=== PATIENT | female | born 1985 | race Caucasian/White ===

== ENCOUNTER 2016-12-11 09:15 | Emergency (ER) | payer BC ==
[~2016-12-11] VITALS: Ht 165.1 cm; Wt 115.2 kg
[2016-12-11 09:27] VITALS: TEMP 36.7; Ht 165.1 cm; Wt 115.2 kg
[2016-12-11] MEDS ORDERED: ONDANSETRON INJ 2 MG/ML 2 ML VIAL IV STA ×2 (09:53→11:43)
[2016-12-11] MEDS ORDERED: MULTI-VITAMIN INFUSION INJ 10 ML, THIAMINE HCL INJ 100 MG, FoLIC ACID INJ 1 MG in SODIU... IV ONE (10:00)
--- NOTE | 2016-12-11 10:02 | EMERGENCY ROOM VISIT NOTE ---
History First contact with patient: 09:48 Chief Complaint: VOMITING Stated Complaint: VOMITING,DIARRHEA Nursing Triage Summary: pt reports NVD since 2200 last night, pt reports 28 weeks preg denies vag bleeding or abdominal cramping History of Present Illness The patient is a 31 year old at 28 weeks gestation female who presents to the Emergency Room with complaints of vomiting and diarrhea since 10pm yesterday. She reports her other two children had stomach bugs, and she caught it last night. She has constantly been nauseated, and vomited too many times to count. She reports over the last few hours she has noticed her vomit had specks of blood in it. She had associated diarrhea. She feels tired but denies any chest pain. She is having mild Stuart-Hsu contractions. She follows with [facility] in [place]. She denies any vaginal bleeding, discharge, or other concerns. Review of Systems See HPI for pertinent positives & negatives. A total of 10 systems reviewed and were otherwise negative. Past Medical/Surgical History No PMHx or PSHx Family History No pertinent FHx Social History Smoking Status: Never Smoker Current/Historical Medications Scheduled Multivit/Min/Iron/Fol Ac/Pren ( Vitamin), 1 TAB PO DAILY Scheduled PRN Ondansetron Odt (Zofran Odt), 8 MG SL Q6H PRN for Nausea Allergies Coded Allergies: No Known Allergies (Unverified , 12/11/16) Physical Exam Vital Signs Date Time Temp Pulse Resp B/P Pulse Ox O2 Delivery O2 Flow Rate FiO2 12/11/16 13:11 102 18 102/53 100 12/11/16 12:29 102 18 116/84 99 Room Air 12/11/16 11:01 102 18 102/59 99 Room Air 12/11/16 09:27 36.7 119 20 135/80 98 Room Air Physical Exam GENERAL: Awake, alert, well-appearing, in no acute distress HENT: Normocephalic, atraumatic. Mouth dry, tongue stained yellow. EYES: Normal conjunctiva. Sclera non-icteric. NECK: Supple. No nuchal rigidity. FROM. No JVD. RESPIRATORY: Clear to auscultation. CARDIAC: Regular rate, normal rhythm. Extremities warm and well perfused. Pulses equal. ABDOMEN: Soft, distended, gravid. No tenderness to palpation. No rebound or guarding. No masses. MUSCULOSKELETAL: Chest examination reveals no tenderness. The back is symmetrical on inspection without obvious abnormality. There is no CVA tenderness to palpation. No joint edema. LOWER EXTREMITIES: Calves are equal size bilaterally and non-tender. No edema. No discoloration. NEURO: Normal sensorium. No sensory or motor deficits noted. SKIN: No rash or jaundice noted. Medical Decision & Procedures Laboratory Results 12/11/16 09:45 Red Blood Count 4.43, Mean Corpuscular Volume 82.4, Mean Corpuscular Hemoglobin 30.0, Mean Corpuscular Hemoglobin Concent 36.4, Mean Platelet Volume 9.6, Neutrophils (%) (Auto) 93.2, Lymphocytes (%) (Auto) 3.8, Monocytes (%) (Auto) 2.3, Eosinophils (%) (Auto) 0.1, Basophils (%) (Auto) 0.1, Neutrophils # (Auto) 14.08, Lymphocytes # (Auto) 0.58, Monocytes # (Auto) 0.35, Eosinophils # (Auto) 0.02, Basophils # (Auto) 0.01 12/11/16 09:45 Test 12/11/16 00:00 12/11/16 09:45 Urine Color YELLOW Urine Appearance CLEAR (CLEAR) Urine pH 6.0 (4.5-7.5) Urine Specific [place] >= 1.030 (1.000-1.030) Urine Protein TRACE (NEG) Urine Glucose (UA) NEG (NEG) Urine Ketones 3+ (NEG) Urine Occult Blood NEG (NEG) Urine Nitrite NEG (NEG) Urine Bilirubin NEG (NEG) Urine Urobilinogen NEG (NEG) Urine Leukocyte Esterase NEG (NEG) White Blood Count 15.12 K/uL (4.8-10.8) Red Blood Count 4.43 M/uL (4.2-5.4) Hemoglobin 13.3 g/dL (12.0-16.0) Hematocrit 36.5 % (37-47) Mean Corpuscular Volume 82.4 fL (80-100) Mean Corpuscular Hemoglobin 30.0 pg (25-34) Mean Corpuscular Hemoglobin Concent 36.4 g/dl (32-36) Platelet Count 297 K/uL (130-400) Mean Platelet Volume 9.6 fL (7.4-10.4) Neutrophils (%) (Auto) 93.2 % Lymphocytes (%) (Auto) 3.8 % Monocytes (%) (Auto) 2.3 % Eosinophils (%) (Auto) 0.1 % Basophils (%) (Auto) 0.1 % Neutrophils # (Auto) 14.08 K/uL (1.4-6.5) Lymphocytes # (Auto) 0.58 K/uL (1.2-3.4) Monocytes # (Auto) 0.35 K/uL (0.11-0.59) Eosinophils # (Auto) 0.02 K/uL (0-0.5) Basophils # (Auto) 0.01 K/uL (0-0.2) RDW Standard Deviation 42.1 fL (36.4-46.3) RDW Coefficient of Variation 14.1 % (11.5-14.5) Immature Granulocyte % (Auto) 0.5 % Immature Granulocyte # (Auto) 0.08 K/uL (0.00-0.02) Anion Gap 12.0 mmol/L (3-11) Est Creatinine Clear Calc Drug Dose 177.9 ml/min Estimated GFR () 141.2 Estimated GFR (Non- 121.8 BUN/Creatinine Ratio 11.4 (10-20) Calcium Level 8.7 mg/dl (8.5-10.1) Total Bilirubin 0.7 mg/dl (0.2-1) Direct Bilirubin 0.2 mg/dl (0-0.2) Aspartate Amino Transf (AST/SGOT) 17 U/L (15-37) Alanine Aminotransferase (ALT/SGPT) 15 U/L (12-78) Alkaline Phosphatase 40 U/L (45-117) Total Protein 6.8 gm/dl (6.4-8.2) Albumin 2.8 gm/dl (3.4-5.0) Lipase 119 U/L (73-393) Medications Administered Medications (Trade) Dose Ordered Sig/Lakshmi Route Start Time Stop Time Status Last Admin Dose Admin Multivitamins/ Thiamine HCl/ Folic Acid/Sodium Chloride (Mvi Infusion Inj/Vitamin B-1 Inj/Folvite Inj/ Nss 1000ml) 1,011.2 ml @ 999 mls/ hr Q1H1M ONCE IV 12/11/16 10:00 12/11/16 11:00 DC 12/11/16 10:09 999 MLS/HR Ondansetron HCl (Zofran Inj) 4 mg NOW STAT IV 12/11/16 09:53 12/11/16 09:54 DC 12/11/16 10:02 4 MG Ondansetron HCl 4 mg 4 mg NOW STAT IV 12/11/16 11:43 12/11/16 11:44 DC 12/11/16 11:54 4 MG Sodium Chloride (Nss 1000ml) 1,000 ml @ 999 mls/hr Q1H1M IV 12/11/16 12:30 12/11/16 13:30 DC 12/11/16 12:30 999 MLS/HR ED Course 9:50: I reviewed the patient. I started her on a 1L Banana bag and provided 4mg IV Zofran. 10:56am: On further review, the patient reports feeling somewhat better. Her nausea has improved. 11:30: On further review by Dr Zaldivar, we ordered labs and a further bolus of fluids. Her labs were negative and she felt better after the next fluid bolus. Medical Decision This is a 31 yo female who likely has a viral gastroenteritis causing nausea/vomiting, and diarrhea. Other differentials include cholecystitis, peptic ulcer disease, reflux, electrolyte disturbance, or dehydration. She received Zofran and 2L of fluid boluses. Her LFTS and lipase were normal so this ruled out any gallbladder pathology. She felt better and her nausea had improved. She ended up passing urine and tolerated PO liquids and crackers. She was deemed safe to discharge home and a prescription of Zofran was prescribed for her as well. She was discharged home in good condition. Impression Primary Impression: Gastroenteritis Departure Information Prescriptions Ondansetron Odt (ZOFRAN ODT) 8 Mg Soltab 8 MG SL Q6H Y for Nausea, #10 TAB Prov: Dariana Martínez MD 12/11/16 Referrals No Doctor, Assigned (PCP) Patient Instructions My [facility] Resident Tracking Resident Involvement: Resident Care Provided Care Provided: Adult ED
[2016-12-11] MEDS ORDERED: PRENTAB26 PO (10:11)
[2016-12-11] MEDS ORDERED: ONDA8TAB62 SL (11:38)
[2016-12-11 12:06] LABS: BASO % 0.1 %; BASO ABS # 0.01 K/uL (0-0.2); COMPLETE YES; EOS % 0.1 %; HEMATOCRIT 36.5 % (37-47); IG% 0.5 %; LYMPH % 3.8 %; LYMPH ABS # 0.58 K/uL (1.2-3.4); MEAN CELL VOLUME 82.4 fL (80-100); MEAN CORPUSCULAR HGB CONC 36.4 g/dl (32-36); MEAN PLATELET VOLUME 9.6 fL (7.4-10.4); MONO % 2.3 %; NEUT % 93.2 %; PLATELET COUNT 297 K/uL (130-400); RED BLOOD COUNT 4.43 M/uL (4.2-5.4); WHITE BLOOD COUNT 15.12 K/uL (4.8-10.8)
[2016-12-11 12:22] LABS: URINE APPEARANCE CLEAR (CLEAR); URINE BILIRUBIN NEG (NEG); URINE COLOR YELLOW; URINE NITRITE NEG (NEG); URINE SPECIFIC GRAVITY >= 1.030 (1.000-1.030); UROBILINOGEN NEG (NEG)
[2016-12-11 12:23] LABS: BUN/CREATININE RATIO 11.4 (10-20); CALCIUM 8.7 mg/dl (8.5-10.1); CREATININE 0.57 mg/dl (0.60-1.20); POTASSIUM 3.9 mmol/L (3.5-5.1)
[2016-12-11 12:25] LABS: MANUAL MICROSCOPIC REQUIRED? NO; REVIEW REQ? NO
[2016-12-11] MEDS ORDERED: SODIUM CHLORIDE 0.9% 1000ML 1,000 ML IV SCH (12:30)
[2016-12-11 13:11] VITALS: BP 102/53; PULSE 102; O2SAT 100
--- NOTE | 2016-12-11 15:35 | EMERGENCY ROOM VISIT NOTE ---
ED Visit Note First contact with patient: 09:48 Patient evaluated with resident. 31-year-old 28 weeks uncomplicated comes emergency room for nausea and loose stools this morning associated with several episodes of nonbilious nonbloody vomiting. Minimal epigastric tenderness on exam and patient appears mildly ill. Screening labs including LFTs and lipase within normal limits. Ketones noted in urine. Antiemetics provided and normal saline 2 L administered. Patient appeared comfortable reexamination tolerating by mouth and would like to go home. She understands take her Zofran as needed.
== END 2016-12-11 13:12 | disposition home or self-care (01) ==
LOC: C.EDB 09:16
DX: O99.613 Diseases of the digestive system complicating pregnancy, third trimester (principal); K52.9 Noninfective gastroenteritis and colitis, unspecified; Z3A.28 28 weeks gestation of pregnancy; Z79.899 Other long term (current) drug therapy

== ENCOUNTER 2017-11-01 16:54 | Emergency (ER) | payer BC ==
[~2017-11-01] VITALS: Ht 165.1 cm; Wt 120.0 kg
[~2017-11-01 16:54] MED LIST: PRENTAB26 PO
[2017-11-01 17:05] VITALS: TEMP 36.6; Ht 165.1 cm; Wt 120.0 kg
[2017-11-01] MEDS ORDERED: IBUPROFEN 800 MG TAB PO STA (17:16)
--- NOTE | 2017-11-01 17:43 | DIAGNOSTIC IMAGING REPORT ---
R FOOT MIN 3 VIEWS ROUTINE, R ANKLE MIN 3 VIEWS ROUTINE HISTORY: 32 years-old Female RIGHT, EVAL FX acute right foot and ankle pain status post trauma COMPARISON: None available TECHNIQUE: 3 views of the right foot and 3 views of the right ankle FINDINGS: FOOT: Acute nondisplaced transverse fracture involves the proximal metaphyseal fifth metatarsal, 1.2 cm from the metatarsal base. Moderate associated soft tissue swelling. There is likely intra-articular extension into adjacent metatarsal cuboid joint. No additional acute fracture or subluxation. ANKLE: No acute fracture, subluxation or osteochondral defect. Mild soft tissue swelling is noted circumferentially about the ankle. IMPRESSION: 1. Acute nondisplaced intra-articular fracture involves the proximal metaphyseal fifth metatarsal, 1.2 cm from the metatarsal base. Follow-up recommended as fractures within this region can be prone to the delayed union or nonunion (Espinosa fracture). 2. No acute fracture or subluxation of the ankle. The above report was generated using voice recognition software. It may contain grammatical, syntax or spelling errors. Electronically signed by: Wili Nguyen M.D. 11/01/2017 5:42 PM Dictated Date/Time: 11/01/2017 5:39 PM
[2017-11-01] MEDS ORDERED: OXYC-57 PO (18:00)
--- NOTE | 2017-11-01 18:00 | EMERGENCY ROOM VISIT NOTE ---
ED Visit Note First contact with patient: 17:12 CHIEF COMPLAINT: Right foot and ankle injury this afternoon HISTORY OF PRESENT ILLNESS: Patient is an otherwise healthy 32-year-old white female who presents to the emergency department for evaluation of right foot/ ankle pain. She tripped while going down a couple of stairs and rolled the right foot and ankle, with immediate onset of pain in the outside of the right foot. She did bear weight on the foot afterwards, but it was difficult. She notes pain and swelling on the lateral aspect of the foot that radiates toward the ankle. She rates her pain a 5/10. She denies any medications, nor perform routine for her symptoms. No prior history of injuries to this ankle or foot. REVIEW OF SYSTEMS: Review of systems as per HPI. All other systems reviewed were negative. At least 6 systems reviewed. PMH: Electronic medical records are reviewed and summarized as above/below. See Problem List. SOCIAL HISTORY: Patient lives at home with her and children. Nonsmoker. PHYSICAL EXAM: Vital Signs: Reviewed Nurse's notes. MENTAL STATUS: Patient is a well-appearing 32-year-old white female who is awake and alert and seated in a wheelchair in no acute distress. MUSCULOSKELETAL: Examination of the right lower leg no soft tissue swelling in the dorsal lateral aspect of the foot and over the lateral aspect of the ankle. She is slightly tender over the lateral ankle ligaments, no pain over the lateral malleolus. She is markedly tender over the proximal fourth and fifth metatarsal region. No ligamentous instability. No pain over the proximal fibular head. Lisfranc joint is negative. There is no deformity. The foot and toes are warm and well-perfused. Sensation to pain and light touch is intact. Skin is intact. EMERGENCY DEPARTMENT COURSE: Patient was given an ice pack and medicated with ibuprofen for discomfort. X-rays of the ankle and foot were obtained. X-ray reveals no acute fracture of the ankle, mild soft tissue swelling noted. She has a comminuted, relatively nondisplaced proximal fifth metatarsal fracture. A compression sleeve and walking boot were applied and the position was satisfactory. Crutches were issued and patient was instructed on a non weight bearing gait. The patient was instructed on orthopedic follow-up. She was given a prescription for Percocet to use as needed for pain. Medication reconciliation: I attest that I have personally reviewed the patient' s current medication list. Blood pressure screening: Patient was found to have a slightly elevated blood pressure due to circumstances. I do not believe that the patient requires hypertension monitoring. Differential diagnosis include foot verses ankle sprain/fracture, contusion, dislocation. R FOOT MIN 3 VIEWS ROUTINE, R ANKLE MIN 3 VIEWS ROUTINE HISTORY: 32 years-old Female RIGHT, EVAL FX acute right foot and ankle pain status post trauma COMPARISON: None available TECHNIQUE: 3 views of the right foot and 3 views of the right ankle FINDINGS: FOOT: Acute nondisplaced transverse fracture involves the proximal metaphyseal fifth metatarsal, 1.2 cm from the metatarsal base. Moderate associated soft tissue swelling. There is likely intra-articular extension into adjacent metatarsal cuboid joint. No additional acute fracture or subluxation. ANKLE: No acute fracture, subluxation or osteochondral defect. Mild soft tissue swelling is noted circumferentially about the ankle. IMPRESSION: 1. Acute nondisplaced intra-articular fracture involves the proximal metaphyseal fifth metatarsal, 1.2 cm from the metatarsal base. Follow-up recommended as fractures within this region can be prone to the delayed union or nonunion (Espinosa fracture). 2. No acute fracture or subluxation of the ankle. Problem List Medical Problems: (1) Gastroenteritis Status: Resolved Surgical Problems: (1) Hx of cholecystectomy Status: Resolved Current/Historical Medications Scheduled Multiple Vitamins W/ Minerals (Adult One Daily Gummies), 1 TAB PO DAILY Scheduled PRN Oxycodone/Acetaminophen 5MG/325MG (Percocet 5MG/325MG), 1-2 TABS PO Q4 PRN for Pain Allergies Coded Allergies: No Known Allergies (Unverified , 12/11/16) Vital Signs Date Time Temp Pulse Resp B/P (MAP) Pulse Ox O2 Delivery O2 Flow Rate FiO2 11/01/17 18:33 75 20 138/105 97 11/01/17 17:05 36.6 77 17 159/120 98 Room Air Medications Administered Medications (Trade) Dose Ordered Sig/Lakshmi Route Start Time Stop Time Status Last Admin Dose Admin Ibuprofen (Motrin Tab) 800 mg NOW STAT PO 11/01/17 17:16 11/01/17 17:17 DC 11/01/17 17:36 800 MG Departure Information Impression Primary Impression: Fracture of fifth metatarsal bone of right foot Additional Impression: Right ankle sprain Prescriptions Oxycodone/Acetaminophen 5MG/325MG (PERCOCET 5MG/325MG) Tab 1-2 TABS PO Q4 Y for Pain, #20 TAB For Initial Treatment Prov: Darleen Pizarro PA 11/01/17 Referrals No Doctor, Assigned (PCP) Jose Gonzales M.D. Patient Instructions My [facility] Additional Instructions Percocet 5/325 mg: Take 1-2 pills every four hours for breakthrough pain. Avoid alcohol, operating machinery or dangerous equipment, working on ladders or roofs, DRIVING, or situations where being under the influence may be dangerous. It is recommended to use an [id number] stool softener such as Colace, 100mg twice daily while taking this medication to avoid constipation. Ibuprofen(Motrin, Advil) may be used for fever or pain. Use 600mg every six hours as needed. Take with food. Avoid using more than 2400mg in a 24 hour period. Do not use 2400mg per day for more than three consecutive days without physician direction. Prolonged inappropriate use can lead to stomach upset or ulcers. This medication can be taken if you need to drive, work, or perform activities which may be dangerous when taking narcotic pain medication. (AND/OR) Acetaminophen(Tylenol) may be used for fever or pain. Use 1000mg every six hours as needed. Avoid using more than 3000mg in a 24 hour period. This medication can be taken if you need to drive, work, or perform activities which may be dangerous when taking narcotic pain medication. Ice compresses for 20 minutes at a time four times daily for 2-3 days. Use the walking boot and crutches as instructed. Rest and elevate your injury. Continue current medications. Return to the ER immediately for any numbness, tingling, severe pain, extreme swelling in the extremity or as needed. Followup with orthopedic surgery this week for further care and management of your fracture. Problem Qualifiers
[2017-11-01] MEDS ORDERED: MULT20CH PO (18:01)
[2017-11-01 18:33] VITALS: BP 138/105; PULSE 75; O2SAT 97
== END 2017-11-01 18:34 | disposition home or self-care (01) ==
LOC: C.EDB 16:55 → C.EDD 18:34
DX: S92.351A Displaced fracture of fifth metatarsal bone, right foot, initial encounter for closed fracture (principal); W18.43XA Slipping, tripping and stumbling without falling due to stepping from one level to another, initial encounter; X50.9XXA Other and unspecified overexertion or strenuous movements or postures, initial encounter; Z90.49 Acquired absence of other specified parts of digestive tract; S93.401A Sprain of unspecified ligament of right ankle, initial encounter

== ENCOUNTER → 2017-11-30 | Outpatient (CLI) | payer BC ==
[~2017-11-30] MED LIST changes: +MULT20CH PO; +OXYC-57 PO; -PRENTAB26 PO
--- NOTE | 2017-11-30 10:37 | DIAGNOSTIC IMAGING REPORT ---
RIGHT FOOT 3 VIEWS CLINICAL HISTORY: Healing fracture. FINDINGS: 3 views of the right foot are compared to study dated 11/01/2017. The skeletal structures are well mineralized. Again seen is a mildly distracted fracture through the base of the fifth metatarsal. Alignment is unchanged from previous. No significant interval healing is identified as compared to 11/01/2017. Persistent fracture lucency is evident. No new fracture is identified. The joint spaces of the foot are preserved. The overlying soft tissues are normal in appearance. IMPRESSION: No significant change in the appearance of a minimally distracted fracture through the base of the fifth metatarsal as compared to 11/01/2017. Electronically signed by: Дмитрий Salmeron M.D. 11/30/2017 10:36 AM Dictated Date/Time: 11/30/2017 10:34 AM
== END | disposition home or self-care (01) ==
LOC: C.RDSM 19:14
PROVIDERS: ATTEND Family Medicine
DX: S92.354D Nondisplaced fracture of fifth metatarsal bone, right foot, subsequent encounter for fracture with routine healing (principal); X58.XXXD Exposure to other specified factors, subsequent encounter

== ENCOUNTER → 2017-12-28 | Outpatient (CLI) | payer BC ==
--- NOTE | 2017-12-28 10:15 | DIAGNOSTIC IMAGING REPORT ---
R FOOT MIN 3 VIEWS CLINICAL HISTORY: F/U RIGHT 5TH METATARSAL FX COMPARISON: Right foot radiographs November 01, 2017 and November 30, 2017. FINDINGS: Tarsometatarsal joints are intact. There has been partial interval healing of the fracture within the base of the right fifth metatarsal with intra-articular extension. Fracture line remains evident. Fracture alignment is unchanged. This is minimally distracted. There is interval callus formation. No additional fractures are identified. IMPRESSION: Partial interval healing of the fracture of the base of the right fifth metatarsal. Fracture line remains evident. No change in alignment. Continued radiographic follow-up is suggested to evaluate for delayed union or nonunion. Electronically signed by: Alvin Jimenez M.D. 12/28/2017 10:14 AM Dictated Date/Time: 12/28/2017 10:11 AM
== END | disposition home or self-care (01) ==
LOC: C.RDSM 09:40
PROVIDERS: ATTEND Family Medicine
DX: S92.354D Nondisplaced fracture of fifth metatarsal bone, right foot, subsequent encounter for fracture with routine healing (principal); X58.XXXD Exposure to other specified factors, subsequent encounter; Z91.030 Bee allergy status